=== PATIENT | male | born 1990 | race Caucasian/White ===

== ENCOUNTER 2019-08-01 23:19 | Emergency (ER) | payer OTHER ==
[2019-08-01 23:35] VITALS: BP 153/85
[2019-08-01] MEDS ORDERED: AMOX/CLAV 875 MG/125 MG TABLET PO STA (23:50)
--- NOTE | 2019-08-01 23:53 | ED Physician Documentation ---
PD HPI ANIMAL BITE - Stated complaint Stated Complaint: DOGBITE L HAND - Chief complaint Chief Complaint: Laceration - History obtained from History obtained from: Patient - History of Present Illness Location of injury(ies): Left hand Details of the event: Dog, Bite, Pet animal, Well appearing, Immunization unknown, Provoked Timing - onset: Today Timing - duration: Hours Timing - details: Abrupt onset, Still present Improved by: Rest Worsened by: Moving, Palpating Similar symptoms before: Has not had sx before Recently seen: Not recently seen - Additional information Additional information: 28-year-old male indicates that he was walking his dog when another dog came out between 2 houses and begin to fight with his dog he got his hand in between the 2 of them trying to get them apart and was bit in the hand. He is uncertain which dog bit him in the hand. Review of Systems Constitutional: denies: Fever Respiratory: denies: Cough GI: denies: Vomiting Skin: reports: Bite / sting Musculoskeletal: reports: Extremity pain. denies: Neck pain, Back pain PD PAST MEDICAL HISTORY - Past Medical History Past Medical History: No Cardiovascular: None Respiratory: None Neuro: None Endocrine/Autoimmune: None GI: None : None HEENT: None Psych: None Musculoskeletal: None Derm: None - Past Surgical History Past Surgical History: No - Present Medications Home Medications: Ambulatory Orders Medication Instructions Recorded Confirmed Amox/Clav 875/125 [Augmentin] 1 each PO Q12H #10 tablet 08/02/19 - Allergies Allergies/Adverse Reactions: Allergies Allergy/AdvReac Type Severity Reaction Status Date / Time No Known Drug Allergies Allergy Verified 08/01/19 23:39 - Social History Does the pt smoke?: No Smoking Status: Never smoker Does the pt drink ETOH?: Yes Does the pt have substance abuse?: No Substance Use and Type: Marijuana - Immunizations Immunizations are current?: Yes - POLST Patient has POLST: No PD ED PE NORMAL - Vitals Vital signs reviewed: Yes (hypertensive ) - General General: Alert and oriented X 3, No acute distress, Well developed/nourished - HEENT HEENT: Atraumatic, PERRL, EOMI - Respiratory Respiratory: No respiratory distress - Derm Derm: Normal color, Warm and dry, No rash - Extremities Extremities: Other (There is a bite laceration to the volar distal phlange of the left middle finger and a small sub ungal hematoma to the left ring finger. 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, No motor deficit, No sensory deficit, Normal speech Eye Opening: Spontaneous Motor: Obeys Commands Verbal: Oriented GCS Score: 15 - Psych Psych: Normal mood, Normal affect Results - Vitals Vitals: Vital Signs - 24 hr 08/01/19 23:32 Temperature 36.7 C Heart Rate 98 Respiratory 17 Rate Blood Pressure 153/85 H O2 Saturation 100 Oxygen O2 Source Room air PD MEDICAL DECISION MAKING - ED course Complexity details: considered differential, d/w patient ED course: 28-year-old male bit by a dog has a laceration to the volar surface of the distal phalange of the left middle finger and this is left open. He is up-to-date on his tetanus and he is given a dose of Augmentin here in the emergency department. Departure - Departure Disposition: 01 Home, Self Care Clinical Impression: Open wound of finger of left hand due to dog bite Condition: Stable Instructions: ED Bite Dog Follow-Up: [facility] [Provider Group] Prescriptions: Amox/Clav 875/125 [Augmentin] 1 each PO Q12H #10 tablet Discharge Date/Time: 08/02/19 00:31
== END 2019-08-02 00:31 | disposition home or self-care (01) ==
LOC: ED 23:19
DX: S61.452A Open bite of left hand, initial encounter (principal); W54.0XXA Bitten by dog, initial encounter; Y93.K1 Activity, walking an animal; Y92.414 Local residential or business street as the place of occurrence of the external cause
CPT/HCPCS: 99282; 99284; A9270

== ENCOUNTER 2023-03-08 13:03 | Emergency (ER) | payer OTHER ==
--- NOTE | 2023-03-08 14:16 | XRAY Report ---
PROCEDURE: Knee 4 View RT INDICATIONS: Trauma. Patient states knee will lock and pop. TECHNIQUE: 4 views of the right knee(s) were acquired. COMPARISON: None. FINDINGS: Bones: No fractures or dislocations. No suspicious bony lesions. Joint loose body medial of the pat topher measuring 0.8 cm. Soft tissues: Moderate effusion. No suspicious soft tissue calcifications or masses. IMPRESSION: Moderate knee joint effusion without displaced fracture. Joint loose body medial to the patella measuring 0.8 cm. Reviewed by: Joe Murphy on 03/08/2023 2:15 PM PDT Approved by: Joe Murphy on 03/08/2023 2:15 PM PDT Station ID: [id number]
--- NOTE | 2023-03-08 15:57 | ED Physician Documentation ---
History of Present Illness - Stated complaint Stated Complaint: RT KNEE LOCK, PX - Chief complaint Chief Complaint: Ext Problem - History obtained from History obtained from: Patient - History of Present Illness Timing: How many days ago (2) Pain level max: 3 Pain level now: 2 - Additonal information Additional information: 32-year-old male presents to the emergency department complaint of right knee pain and feeling that the knee is locking over the past 2 days. He did have a history of patellar dislocations several years ago. He states that if he bends the knee to 90 degrees, he feels like it locks and he has to manipulate the leg to get the knee to "unlock". Review of Systems Constitutional: denies: Fever, Chills GI: denies: Vomiting, Diarrhea Skin: denies: Rash Musculoskeletal: denies: Neck pain, Back pain Neurologic: denies: Headache PD PAST MEDICAL HISTORY - Past Medical History Past Medical History: Yes Cardiovascular: None Respiratory: None Neuro: None Endocrine/Autoimmune: None GI: None : None HEENT: None Psych: None Musculoskeletal: None Derm: None - Past Surgical History Past Surgical History: No - Present Medications Home Medications: Ambulatory Orders Medication Instructions Recorded Confirmed Amox/Clav 875/125 [Augmentin] 1 each PO Q12H #10 tablet 08/02/19 - Allergies Allergies/Adverse Reactions: Allergies Allergy/AdvReac Type Severity Reaction Status Date / Time No Known Drug Allergies Allergy Verified 03/08/23 13:09 - Social History Does the pt smoke?: No Smoking Status: Never smoker Does the pt drink ETOH?: Yes Does the pt have substance abuse?: No - Immunizations Immunizations are current?: Yes - POLST Patient has POLST: No PD ED PE NORMAL - Vitals Vital signs reviewed: Yes - General General: Alert and oriented X 3, No acute distress - HEENT HEENT: Moist mucous membranes - Neck Neck: Supple, no meningeal sign - Derm Derm: Warm and dry - Extremities Extremities: Other (Right knee - Mild joint effusion. ACL, MCL, PCL, LCL are intact. There is ligamentous laxity to the LCL. No joint line tenderness. No crepitus. Neurovascular intact. Meniscus testing is normal.) - Neuro Neuro: Alert and oriented X 3 - Psych Psych: Normal mood, Normal affect Results - Vitals Vitals: Vital Signs - 24 hr 03/08/23 03/08/23 13:09 16:05 Temperature 36.5 C 36.5 C Heart Rate 97 90 Respiratory 16 16 Rate Blood Pressure 150/90 H 130/88 H O2 Saturation 100 100 Oxygen O2 Source Room air - Rads (name of study) Right knee x-ray Relevant Findings:: Final report received, See rad report PD Medical Decision Making - ED course Complexity details: reviewed results, considered differential, d/w patient ED course: Patient with a right knee effusion, suspect meniscus injury, there is likely a flap/tear. Placed in a hinged knee brace to limit range of motion. Declines crutches or pain medication. We will have him follow-up with orthopedics for further care. Patient counseled regarding signs and symptoms for which I believe and urgent re-evaluation would be necessary. Patient with good understanding of and agreement to plan and is comfortable going home at this time This document was made in part using voice recognition software. While efforts are made to proofread this document, sound alike and grammatical errors may occur. Departure - Departure Disposition: 01 Home, Self Care Clinical Impression: Knee effusion, right Injury of meniscus of knee Qualifiers: Encounter type: initial encounter Laterality: right Qualified Code(s): S83.8X1A - Sprain of other specified parts of right knee, initial encounter Condition: Good Instructions: ED Meniscal Injury Knee Poss, ED Effusion Knee Follow-Up: [facility] [Provider Group] - Within 1 week Comments: You can wear the brace as needed at home. This will help to limit the range of motion and take some of the pressure/stress off of your knee. You should avoid any high impact activities until seen by orthopedics. Please return if you wor sen. Forms: Activity restrictions Discharge Date/Time: 03/08/23 16:05
[2023-03-08 16:06] VITALS: BP 130/88
== END 2023-03-08 16:05 | disposition home or self-care (01) ==
LOC: ED 13:03
DX: M25.461 Effusion, right knee (principal); S83.8X1A Sprain of other specified parts of right knee, initial encounter; X58.XXXA Exposure to other specified factors, initial encounter
CPT/HCPCS: 99283

== ENCOUNTER 2023-03-20 10:36 | Outpatient (CLI) | payer OTHER ==
--- NOTE | 2023-03-20 14:04 | MRI Report ---
PROCEDURE: KNEE WO - RT INDICATIONS: PAIN IN RIGHT KNEE TECHNIQUE: Noncontrast sagittal PD fast spin echo and T2 fast spin echo with fat saturation, sagittal 3-D gradie nt sequence with fat saturation; coronal T1 spin echo and PD fast spin echo with fat saturation, and axial PD fast spin echo with fat saturation through the knee. COMPARISON: Knee radiographs 03/08/2023 FINDINGS: Image quality: Mild motion artifact. Menisci Medial: Intact. Meniscocapusular junction maintained. Lateral: Intact. Meniscopopliteal fascicles maintained. Cruciate ligaments: Intact Medial structures MCL: Intact Pes anserine tendons: Intact Semimembranosus: Intact Lateral structures LCL: Mild edema at the origin. Biceps femoris: Intact IT band: Intact Popliteus tendon: Intact Anterior structures Extensor mechanism: Intact Fat pads: Minimal T2 signal in Hoffa's fat pad. Medial retinaculum: Intact. Trochlea: TT TG distance is at the upper limit of normal at about 1.5 cm. Bone and joint Bones: No acute edema. As seen on radiography, there is a broken piece of bone adjacent to the medial patella measuring 1.9 cm in craniocaudal dimension and 0.5 cm in transverse dimension. Cartilage: No full-thickness defect. Mild heterogeneity. Heterogeneity is most pronounced at the pro llar cartilage, with partial thickness fissures, particularly at the median ridge. Joint space: Minimal joint effusion. There might be 2 small loose bodies in the posterior joint space (10/115) measuring about 4 and 5 to 6 mm. Leach's cyst: None Soft tissues: No significant vascular or other soft tissue pathology. IMPRESSION: As seen on radiography, up bone fragment without acute edema is seen adjacent to the medial patella, likely sequela of prior injury, likely related to the adjacent MPFL and medial retinaculum. TT TG dis tance is at the upper limit of normal, at 1.5 cm. There is minimal edema in the superolateral Hoffa's fat pad. Partial thickness fissuring at the median ridge of the patella also seen. Possible tiny 2 loose bodies in the posterior joint space. Minimal joint effusion. Mild edema at the origin of the LCL. Reviewed by: Dakota Pino MD on 03/20/2023 2:03 PM PDT Approved by: Dakota Pino MD on 03/20/2023 2:03 PM PDT Station ID: [id number]
== END 2023-03-20 10:37 | disposition home or self-care (01) ==
LOC: DI 10:36
PROVIDERS: ATTEND Orthopaedic Surgery
DX: M25.561 Pain in right knee (principal); M23.91 Unspecified internal derangement of right knee; M25.461 Effusion, right knee; R60.0 Localized edema

== ENCOUNTER 2024-05-03 08:50 | Outpatient (CLI) | payer OTHER ==
--- NOTE | 2024-05-06 11:51 | MRI Report ---
PROCEDURE: Knee RT WO INDICATIONS: R KNEE PAIN TECHNIQUE: Noncontrast sagittal PD fast spin echo and T2 fast spin echo with fat saturation, sagittal 3-D gradie nt sequence with fat saturation; coronal T1 spin echo and PD fast spin echo with fat saturation, and axial PD fast spin echo with fat saturation through the knee. COMPARISON: MRI right knee, 03/20/2023. X-ray right knee, 03/08/2023. FINDINGS: Image quality: Excellent. Menisci: Question small tear versus intrasubstance degeneration of the peripheral aspect of the poste rior horn the medial meniscus (series 6 image 7). The lateral meniscus demonstrates normal morphology and internal signal. The meniscal root ligaments appear intact. Cruciate ligaments: The anterior and posterior cruciate ligaments appear intact. Medial structures: The medial collateral ligament appears intact. The semimembranosus tendon insert ions and meniscocapsular junction appear intact. Visualized portions of the pes anserinus tendons ap pear normal. No abnormal bursal fluid. Lateral structures: The lateral collateral ligament, long and short heads of the biceps femoris tend on appear intact. The popliteus tendon appears normal. Iliotibial band appears normal. Anterior structures: The quadriceps and patellar tendons appear intact. Mild quadriceps tendinitis. There is lateral tilt of patella. No femoral trochlear dysplasia or ventral trochlear prominence. N o edema in the infrapatellar fat pad. Bones and cartilage: There is a corticated osseous fragment in the medial aspect of the patella like ly sequelae of remote injury. No bone marrow contusions or fractures. Mild cartilage fibrillation in patella is preserved cartilage thickness. Joint space: There is small knee joint effusion. No Leach's cyst. Normal appearing synovial plicae are incidentally noted. Possible small intra-articular bodies seen on the last exam are not definit ively visualized on the current exam. IMPRESSION: 1. Suspect small tear involving the peripheral aspect of the posterior horn of the medial meniscus. 2. Corticated osseous fragment in the medial aspect of patella, likely sequelae of remote injury. 3. Mild quadriceps tendinitis. 4. Mild cartilage fibrillation in patella with preserved cartilage thickness. 5. Small knee joint effusion. Reviewed by: Miles Mon MD on 05/06/2024 10:49 AM BRADEN Approved by: Miles Mon MD on 05/06/2024 10:49 AM AKDT Station ID: [id number]
== END 2024-05-03 08:51 | disposition home or self-care (01) ==
LOC: DI 08:50
PROVIDERS: ATTEND Orthopaedic Surgery
DX: M76.891 Other specified enthesopathies of right lower limb, excluding foot (principal); M25.461 Effusion, right knee; M23.91 Unspecified internal derangement of right knee